=== PATIENT | female | born 1985 | race Caucasian/White ===

== ENCOUNTER 2017-12-05 10:44 | Emergency (ER) | payer MEDICAID ==
[~2017-12-05] VITALS: Ht 157.5 cm; Wt 71.7 kg
[2017-12-05 10:52] VITALS: Ht 157.5 cm; Wt 71.7 kg
[2017-12-05 13:43] VITALS: BP 110/60
== END 2017-12-05 13:43 | disposition home or self-care (01) ==
LOC: ED 10:44
DX: L02.413 Cutaneous abscess of right upper limb (principal); F11.10 Opioid abuse, uncomplicated; F15.10 Other stimulant abuse, uncomplicated
CPT/HCPCS: 90715; J2001; J2270; Q0162

== ENCOUNTER 2017-12-08 16:10 | Emergency (ER) | payer MEDICAID ==
[~2017-12-08] VITALS: Ht 160 cm; Wt 65.8 kg
[2017-12-08 16:19] VITALS: BP 116/76; Ht 160 cm; Wt 65.8 kg
== END 2017-12-08 19:13 | disposition home or self-care (01) ==
LOC: ED 16:10
DX: Z48.01 Encounter for change or removal of surgical wound dressing (principal)
CPT/HCPCS: J2001

== ENCOUNTER 2017-12-11 14:43 | Emergency (ER) | payer MEDICAID ==
[~2017-12-11] VITALS: Ht 160 cm; Wt 66.3 kg
[2017-12-11 14:51] VITALS: BP 108/74; Ht 160 cm; Wt 66.3 kg
== END 2017-12-11 15:53 | disposition left against medical advice (07) ==
LOC: ED 14:43
DX: Z53.21 Procedure and treatment not carried out due to patient leaving prior to being seen by health care provider (principal)

== ENCOUNTER 2018-03-12 03:08 | Emergency (ER) | payer MEDICAID ==
[~2018-03-12] VITALS: Ht 160 cm; Wt 69.4 kg
[2018-03-12 03:18] VITALS: Ht 160 cm; Wt 69.4 kg
[2018-03-12 06:30] VITALS: BP 146/84
== END 2018-03-12 06:30 | disposition left against medical advice (07) ==
LOC: ED 03:08
DX: L02.413 Cutaneous abscess of right upper limb (principal); F90.9 Attention-deficit hyperactivity disorder, unspecified type; F41.9 Anxiety disorder, unspecified; F32.9 Major depressive disorder, single episode, unspecified; F42.9 Obsessive-compulsive disorder, unspecified
CPT/HCPCS: J2001